=== PATIENT | male | born 1955 | race Caucasian/White ===

== ENCOUNTER 2018-11-02 06:54 | Outpatient (CLI) | payer MEDICARE ==
--- NOTE | 2018-11-02 11:19 | Ultrasound Report ---
Reason: ENCOUNTER FOR SCREENING FO Procedure Date: 11/02/2018 Accession Number: [id number] / [id number] Procedure: US - Aorta Screening CPT Code: FULL RESULT: EXAM: AORTIC DOPPLER ULTRASOUND EXAM DATE: 11/02/2018 08:02 AM. CLINICAL HISTORY: Encounter for screening FO. COMPARISON: None. TECHNIQUE: Real-time sonographic imaging of retroperitoneal vascular structures, including color-flow, Doppler flow and spectral analysis was performed by the supervisor commissary production. Multiple marketing sales representative static images were saved for review. FINDINGS: Aorta: The abdominal aorta was adequately visualized. The infrarenal aorta is atherosclerotic and demonstrates fusiform ectasia which extends to the bilateral common iliac arteries as below. Aorta: Proximal: Sagittal PA: 2.5 cm. Mid: Transverse: 2.2 x 2.2 cm. Distal: Transverse: 3.1 x 3.4 cm. Caliber WNL: No Plaque visualized: Yes. Iliacs: Right Iliac: Transverse: 1.7 x 2.1 cm. Left Iliac: Transverse: 2.0 x 1.4 cm. Other: None. IMPRESSION: Infraabdominal aortic ectasia of up to 3.4 cm extending to the right and left common iliac arteries which measure up to 2.1 and 2.0 cm in caliber respectively. RADIA
== END 2018-11-02 06:55 | disposition home or self-care (01) ==
LOC: DI 06:54
PROVIDERS: ATTEND Internal Medicine
DX: Z13.6 Encounter for screening for cardiovascular disorders (principal); I77.811 Abdominal aortic ectasia
CPT/HCPCS: 76706

== ENCOUNTER 2021-06-27 07:07 | Outpatient (CLI) | payer MEDICARE ==
--- NOTE | 2021-06-27 11:24 | Ultrasound Report ---
PROCEDURE: Retroperitoneal Limited INDICATIONS: AAA TECHNIQUE: Real time scanning was performed of the aorta and iliac arteries, with image documentatio n. COMPARISON: 11/02/2018 FINDINGS: Aorta: Proximal aortic diameter measures 3.2 x 3.2 cm, previously measuring 2.6 x 2.5 Mid-aorta bharti sures 2.6 x 2.2 cm, previously measuring 2.3 x 2.2 cm. There is a fusiform distal abdominal aortic aneurysm seen measuring 3.7 cm AP by 3.8 cm transversely, previously measuring 3.1 x 3.4 cm. Iliac arteries: Right common iliac artery measures 2.3 x 1.8 cm, previously measuring 2.2 x 1.7 cm. Left common iliac artery measures 1.9 x 1.9 cm, previously measuring 2 x 1.4 cm. IMPRESSION: Worsening distal abdominal aortic aneurysm, now measuring 3.7 cm AP. Mild proximal aortic aneurysm, measuring 3.2 cm AP, also increased compared to the prior. Reviewed by: Zach Hoover MD on 06/27/2021 10:22 AM [facility] Approved by: Zach Hoover MD on 06/27/2021 10:22 AM [facility] Station ID: [id number]
== END 2021-06-27 07:08 | disposition home or self-care (01) ==
LOC: DI 07:07
PROVIDERS: ATTEND Internal Medicine
DX: I71.4 Abdominal aortic aneurysm, without rupture (principal)